=== PATIENT | female | born 1970 | race Caucasian/White ===

== ENCOUNTER 2019-05-20 14:03 | Emergency (ER) | payer SELFPAY ==
[~2019-05-20] VITALS: Ht 167.6 cm; Wt 86.2 kg
[2019-05-20 14:42] VITALS: BP 150/89
[2019-05-20] MEDS ORDERED: ONDANSETRON ODT 4 MG TAB.RAPDIS. PO ONE (15:30)
[2019-05-20] MEDS ORDERED: MORPHINE SULFATE 4 MG/ML VIAL. IM ONE (15:30)
--- NOTE | 2019-05-20 15:36 | PHYS DOC ---
Past Medical History Past Medical History: Anxiety, Depression, Hypertension, Kidney Stone Past Surgical History: Appendectomy, , Tonsillectomy Alcohol Use: Occasionally Drug Use: None Adult General Chief Complaint Chief Complaint: MECHANICAL FALL HPI HPI Patient is a 48 year old female who presents to the [facility] for fall at [facility] arrival. The patient states she fell on the sidewalk after tripping over the sidewalk. Rates her pain a 7 out of 10 in severity and sharp. Review of Systems Review of Systems Constitutional: Denies fever or chills [] Eyes: Denies change in visual acuity, redness, or eye pain [] HENT: Denies nasal congestion or sore throat [] Respiratory: Denies cough or shortness of breath [] Cardiovascular: No additional information not addressed in HPI [] GI: Denies abdominal pain, nausea, vomiting, bloody stools or diarrhea [] : Denies dysuria or hematuria [] Musculoskeletal: Reports face pain and states she is unable to open jaw. Has an abrasion to her chin. Integument: Denies rash or skin lesions [] Neurologic: Denies headache, focal weakness or sensory changes [] Endocrine: Denies polyuria or polydipsia [] Complete systems were reviewed and found to be within normal limits, except as documented in this note. Current Medications Current Medications Current Medications Medications (Trade) Dose Ordered Sig/Amara Start Time Stop Time Status Last Admin Dose Admin Morphine Sulfate (Morphine Sulfate) 8 mg 1X ONCE 05/20/19 15:30 05/20/19 15:31 DC 05/20/19 15:42 8 MG Ondansetron HCl (Zofran Odt) 4 mg 1X ONCE 05/20/19 15:30 05/20/19 15:31 DC 05/20/19 15:42 4 MG Allergies Allergies Allergies Coded Allergies Type Severity Reaction Last Updated Verified vancomycin Adverse Reaction Unknown RASH 05/20/19 Yes Physical Exam Physical Exam Constitutional: Well developed, well nourished, no acute distress, non-toxic appearance. [] HENT: Normocephalic, abrasion to chin with tenderness to mandible, bilateral external ears normal, oropharynx moist, no oral exudates, nose normal. [] Eyes: PERRLA, EOMI, conjunctiva normal, no discharge. [] Neck: Normal range of motion, mild tenderness to neck, supple, no stridor. [] Cardiovascular:Heart rate regular rhythm, no murmur [] Lungs & Thorax: Bilateral breath sounds clear to auscultation [] Abdomen: Bowel sounds normal, soft, no tenderness, no masses, no pulsatile masses. [] Skin: Warm, dry, no erythema, no rash. [] Back: No tenderness, no CVA tenderness. [] Extremities: No tenderness, no cyanosis, no clubbing, ROM intact, no edema. [] Neurologic: Alert and oriented X 3, normal motor function, normal sensory function, no focal deficits noted. [] Psychologic: Affect normal, judgement normal, mood normal. [] Current Patient Data Vital Signs Vital Signs Date Time Temp Pulse Resp B/P (MAP) Pulse Ox O2 Delivery O2 Flow Rate FiO2 05/20/19 15:42 16 99 Room Air 05/20/19 14:42 98.3 91 150/89 (109) 98.3 EKG EKG [] Radiology/Procedures Radiology/Procedures [facility] [address] [place], [place] [id number] IMAGING REPORT Signed PATIENT: MAGDALENA APODACA ACCOUNT: [id number] : 1970 LOCATION: ER AGE: 48 SEX: F EXAM STATUS: REG ER ORD. PHYSICIAN: DOYLE MORRISON APRN REASON: fall, neck pain PROCEDURE: CT CERVICAL SPINE WO CONTRAST CT HEAD AND MAXILLOFACIAL WO, CT CERVICAL SPINE WO CONTRAST Clinical indications: Fall with head injury and facial injury and neck pain. NONCONTRAST HEAD CT COMPARISON: None available. Technique: Noncontrast axial cross sectional scanning of the head was performed. PQRS compliance Statement One or more of the following individualized dose reduction techniques were utilized for this study: 1. Automated exposure control 2. Adjustment of the mA and/or kV according to patient size 3. Use of iterative reconstruction technique Findings: No acute intracranial hemorrhage or midline shift or mass-effect or hydrocephalus or extra-axial fluid collection is seen. No focal hypodense area or sulci effacement is seen to indicate an acute infarct or edema radiographically. No skull fracture or pneumocephalus is seen. No opacification of the mastoid sinuses or the middle ear cavities is seen. IMPRESSION: No acute intracranial abnormality is seen. CT STUDY OF THE CERVICAL SPINE WITHOUT CONTRAST TECHNIQUE: Noncontrast helical CT scanning of the cervical spine was performed. Multiplanar 2-D reconstructions were generated. FINDINGS: No acute fracture or discitis or lytic process or anterolisthesis is evident. No perching of facet joints is evident. Degenerative disc space narrowing and endplate spurring is seen at C5-6 and C6-7. There is degenerative endplate spurring without disc space narrowing at C4-5. IMPRESSION: No acute fracture. CT STUDY OF THE MAXILLOFACIAL BONES WITHOUT CONTRAST TECHNIQUE: Noncontrast helical CT scanning of the maxillofacial bones was performed. Multiplanar 2-D reconstructions were generated. FINDINGS: The mandible is intact and the temporomandibular joints are normally aligned. No displacement of teeth is seen. The maxilla and pterygoid plates are intact. The nasal spine and nasal bones are intact. There is nasal septal deviation with the major convexity pointed towards the right side. Zygoma and zygomatic arch is intact on both sides. The orbits and orbital floor is intact on both sides. There is moderate mucosal thickening of the left sphenoid sinus. The other paranasal sinuses are clear and no air-fluid levels are seen. No lytic process is seen. IMPRESSION: No acute facial bone fracture. Moderate mucosal thickening of the left sphenoid sinus. Electronically signed by: Dee Fuchs MD (05/20/2019 3:58 PM) [id number] DICTATED and SIGNED BY: DEE FUCHS MD DATE: 05/20/19 1558 Course & Med Decision Making Course & Med Decision Making Pertinent Labs and Imaging studies reviewed. (See chart for details) Reports Jaw doesn't fit together correctly, and has mandibular pain. Will get CT head/neck and maxillofacial x-ray. Will give pain medication. Imaging is negative, after pain medication, patient is able to open mouth. Will d/c home with pain medication. Dragon Disclaimer Dragon Disclaimer This electronic medical record was generated, in whole or in part, using a voice recognition dictation system. Departure Departure Impression: Primary Impression: Fall Disposition: HOME, SELF-CARE Condition: STABLE Referrals: NO PCP (PCP) Patient Instructions: Fall Prevention and Home Safety Additional Instructions: Thank you for visiting [facility]. We appreciate you trusting us with your care. If any additional problems come up don't hesitate to return to visit us. Please follow up with your primary care provider so they can plan additional care if needed and know about the problem that you had. If symptoms worsen come back to the Emergency Department. Any concerning symptoms that start such as chest pain, shortness of air, weakness or numbness on one side of the body, running high fevers or any other concerning symptoms return to the ER. Please fill your medications at any pharmacy and follow the prescription instructions. Scripts Hydrocodone/Apap 5-325 (NORCO 5-325 TABLET) 1 Each Tablet 1 TAB PO PRN Q6HRS PRN for PAIN for 3 Days, #10 TAB 0 Refills Prov: DOYLE MORRISON APRN 05/20/19 Problem Qualifiers Primary Impression: Fall Encounter type: initial encounter Qualified Codes: W19.XXXA - Unspecified fall, initial encounter DOYLE MORRISON APRN May 20, 2019 15:36
--- NOTE | 2019-05-20 16:01 | RAD ---
CT HEAD AND MAXILLOFACIAL WO, CT CERVICAL SPINE WO CONTRAST Clinical indications: Fall with head injury and facial injury and neck pain. NONCONTRAST HEAD CT COMPARISON: None available. Technique: Noncontrast axial cross sectional scanning of the head was performed. PQRS compliance Statement One or more of the following individualized dose reduction techniques were utilized for this study: 1. Automated exposure control 2. Adjustment of the mA and/or kV according to patient size 3. Use of iterative reconstruction technique Findings: No acute intracranial hemorrhage or midline shift or mass-effect or hydrocephalus or extra-axial fluid collection is seen. No focal hypodense area or sulci effacement is seen to indicate an acute infarct or edema radiographically. No skull fracture or pneumocephalus is seen. No opacification of the mastoid sinuses or the middle ear cavities is seen. IMPRESSION: No acute intracranial abnormality is seen. CT STUDY OF THE CERVICAL SPINE WITHOUT CONTRAST TECHNIQUE: Noncontrast helical CT scanning of the cervical spine was performed. Multiplanar 2-D reconstructions were generated. FINDINGS: No acute fracture or discitis or lytic process or anterolisthesis is evident. No perching of facet joints is evident. Degenerative disc space narrowing and endplate spurring is seen at C5-6 and C6-7. There is degenerative endplate spurring without disc space narrowing at C4-5. IMPRESSION: No acute fracture. CT STUDY OF THE MAXILLOFACIAL BONES WITHOUT CONTRAST TECHNIQUE: Noncontrast helical CT scanning of the maxillofacial bones was performed. Multiplanar 2-D reconstructions were generated. FINDINGS: The mandible is intact and the temporomandibular joints are normally aligned. No displacement of teeth is seen. The maxilla and pterygoid plates are intact. The nasal spine and nasal bones are intact. There is nasal septal deviation with the major convexity pointed towards the right side. Zygoma and zygomatic arch is intact on both sides. The orbits and orbital floor is intact on both sides. There is moderate mucosal thickening of the left sphenoid sinus. The other paranasal sinuses are clear and no air-fluid levels are seen. No lytic process is seen. IMPRESSION: No acute facial bone fracture. Moderate mucosal thickening of the left sphenoid sinus. Electronically signed by: Thom Fuchs MD (05/20/2019 3:58 PM) [place] [id number]
[2019-05-20] MEDS ORDERED: HYDR-3164 PO (16:34)
== END 2019-05-20 17:00 | disposition home or self-care (01) ==
LOC: ER 14:03
DX: S00.81XA Abrasion of other part of head, initial encounter (principal); F41.9 Anxiety disorder, unspecified; F32.9 Major depressive disorder, single episode, unspecified; I10 Essential (primary) hypertension; Z87.442 Personal history of urinary calculi; Z98.890 Other specified postprocedural states; Z90.89 Acquired absence of other organs; Z88.1 Allergy status to other antibiotic agents; W01.0XXA Fall on same level from slipping, tripping and stumbling without subsequent striking against object, initial encounter; Y93.89 Activity, other specified; Y92.89 Other specified places as the place of occurrence of the external cause; Y99.8 Other external cause status
CPT/HCPCS: 70450; 70486; 72125; 96372; 99284; J2270; Q0162